=== PATIENT | male | born 1945 | race American Indian/Alaskan Native ===

== ENCOUNTER 2017-05-31 22:25 | Emergency (ER) | payer MEDICARE ==
[2017-05-31 22:51] VITALS: O2SAT 98
--- NOTE | 2017-06-01 00:08 | C.PDOC ---
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 Patient notes the cough occurs after he eats meals. Patient states the cough "takes his breath away." Patient also states he feels like his heart is racing. He denies fever, chills, exposure to allergens, social history of smoking. Time Seen by Provider: 06/01/17 00:08 Chief Complaint (Nursing): Cough, Cold, Congestion History Per: Patient History/Exam Limitations: no limitations Onset/Duration Of Symptoms: Days, Persistent Current Symptoms Are (Timing): Still Present Associated Symptoms: Cough. denies: Fever, Chills Past Medical History Reviewed: Historical Data, Nursing Documentation, Vital Signs Vital Signs: Last Vital Signs Temp 98 F 06/01/17 01:55 Pulse 78 06/01/17 01:55 Resp 16 06/01/17 01:55 BP 135/69 06/01/17 01:55 Pulse Ox 98 06/01/17 02:22 - Medical History PMH: No Chronic Diseases Surgical History: No Surg Hx Family History: States: Unknown Family Hx - Social History Hx Alcohol Use: No Hx Substance Use: No - Immunization History Hx Tetanus Toxoid Vaccination: No Hx Influenza Vaccination: No Hx Pneumococcal Vaccination: No Review Of Systems Constitutional: Negative for: Fever, Chills Respiratory: Positive for: Cough Physical Exam - Physical Exam Appears: Non-toxic, No Acute Distress Skin: Normal Color, Warm, Dry Head: Atraumatic, Normacephalic Eye(s): bilateral: Normal Inspection Oral Mucosa: Moist Throat: Normal, No Erythema, No Exudate, No Drooling Neck: Supple Chest: Symmetrical, No Deformity, No Tenderness Cardiovascular: Rhythm Regular, No Murmur Respiratory: No Rales, No Rhonchi, No Wheezing, Other (diminished breath sounds bilaterally ) Gastrointestinal/Abdominal: Soft, No Tenderness, No Guarding, No Rebound Extremity: Normal ROM, Capillary Refill (less than 2 seconds ) Neurological/Psych: Normal Speech, Normal Cognition Gait: Steady ED Course And Treatment O2 Sat by Pulse Oximetry: 98 (on RA) Pulse Ox Interpretation: Normal Medical Decision Making Medical Decision Making: Progress: CXR and EKG ordered and reviewed. Albuterol INH administered. CXR results show no acute pulmonary disease. Normal cardiac silhouette. On reassessment, pt is resting comfortably and is showing no signs of respiratory distress. Patient is stable for discharge. Disposition - Disposition Referrals: Yo Dwyer MD [Primary Care Provider] - Disposition: HOME/ ROUTINE Disposition Time: 03:09 Condition: GOOD Prescriptions: Albuterol Sulfate [Proair Hfa] 200 puff IH QID PRN #1 inh PRN Reason: Shortness Of Breath Instructions: Asthma in Adults, Upper Respiratory Infection (ED) Forms: [employer] (Icelandic) Print Language: MONGOLIAN - Clinical Impression Clinical Impression: Upper respiratory infection, Bronchospasm - Scribe Statement The provider has reviewed the documentation as recorded by the Scribe ([email or web address]) Provider Attestation: All medical record entries made by the Scribe were at my direction and personally dictated by me. I have reviewed the chart and agree that the record accurately reflects my personal performance of the history, physical exam, medical decision making, and the department course for this patient. I have also personally directed, reviewed, and agree with the discharge instructions and disposition.
[2017-06-01] MEDS ORDERED: Albuterol 0.083% Inhal Sol (2.5 mg/3 mL) UD INH STA (00:31)
[2017-06-01] MEDS ORDERED: Albuterol-Ipratrop 3 mg / 0.5 (3 ml) UD ONE (00:40)
[2017-06-01 00:56] VITALS: PULSE 78; TEMP 98
[2017-06-01 01:56] VITALS: BP 135/69; RESP 16
--- NOTE | 2017-06-01 10:21 | RAD ---
HISTORY: cough, COMPARISON: None available. TECHNIQUE: Chest PA and lateral FINDINGS: LUNGS: Minimal patchy opacity within the inferior aspect of the right upper lobe likely subsegmental atelectasis. Please note that chest x-ray has limited sensitivity for the detection of pulmonary masses. PLEURA: No significant pleural effusion identified. No definite pneumothorax . CARDIOVASCULAR: Heart size appears within normal limits. OSSEOUS STRUCTURES: No acute osseous abnormality identified. VISUALIZED UPPER ABDOMEN: Unremarkable. OTHER FINDINGS: None. IMPRESSION: Minimal patchy opacity within the inferior aspect of the right upper lobe likely subsegmental atelectasis. Correlate clinically.
--- NOTE | 2017-06-01 11:39 | CARD ---
APPROVED REPORT EKG Measurement Heart [id number] <Conclusion> Normal sinus rhythm Normal ECG
== END 2017-06-01 01:56 | disposition home or self-care (01) ==
LOC: C.ER 22:25 → SUPCPDRO 22:25 → C.ER 06-01 01:56
DX: J06.9 Acute upper respiratory infection, unspecified (principal); J98.01 Acute bronchospasm